=== PATIENT | male | born 1935 | race Caucasian/White ===

== ENCOUNTER 2016-03-01 12:23 | Emergency (ER) | payer MEDICARE ==
[2016-03-01] MEDS ORDERED: SODIUM BICARBONATE 4.2% VIAL 5 ML IM ONE (12:24)
--- NOTE | 2016-03-01 15:16 | CT ---
Exam: CT head without contrast COMPARISON: 07/26/2014 INDICATION: Ground-level fall, hitting posterior head. TECHNIQUE: CT examination of the head was obtained without contrast. FINDINGS: There is no acute intracranial hemorrhage. There is no abnormal intra or extra-axial fluid collection. There is no edema, mass effect or midline shift. Mild ventriculomegaly is unchanged. There is minor global atrophy. Minor deep white matter hypodensities are seen, compatible with chronic small vessel ischemic changes. Intracranial vascular calcifications are noted. There is no depressed skull fracture. The visualized paranasal sinuses and mastoid air cells are well aerated. IMPRESSION: No acute intracranial abnormality. Stable exam since 07/26/2014 without significant interval change. Report was uploaded to the EMR at 1512 hours 03/01/2016.
--- NOTE | 2016-03-01 16:05 | RAD ---
Exam: Two-view chest COMPARISON: 10/18/2014, 07/26/2014, 02/21/2013 INDICATION: Cough. Recent fall out of bed. Afebrile. Findings: AP and lateral views of the chest were obtained. Cardiac silhouette is within normal limits. Lungs are well-inflated. There are bilateral pleural effusions, right much greater than left. Right pleural effusion was seen on the 2015 chest radiograph but is increased may be partially loculated. Left-sided pleural effusion is small and new. Bones of the chest wall within normal limits. No displaced rib fracture is identified. IMPRESSION: Bilateral pleural effusions, right much greater than left. Right pleural effusion has increased since 2015 and may be partially loculated, and a small left-sided pleural effusion is new. These are of uncertain etiology and significance. Findings were discussed with Dr. Juares at 1600 hours 03/01/2016.
[2016-03-01 16:51] LABS: ABSOLUTE NEUTROPHIL COUNT 4.5 K/mm3 (1.8-7.7); BASO # 0.1 K/mm3 (0.0-0.2); BASO % 0.7 % (0.2-1.0); EOS # 1.3 (0.0-0.5); EOS % 19.1 % (0.9-2.9); HEMATOCRIT 35.5 % (32.0-52.0); HEMOGLOBIN 10.9 gm/l (14.0-18.0); IMM NEUT% 0.3 % (0-1); LYMPH # 0.5 (1.0-4.8); LYMPH % 7.2 % (15-45); MEAN CELL VOLUME 89.6 fl (80.0-94.0); MEAN CORPUSCULAR HEMOGLOBIN 27.5 pg (27.0-31.0); MEAN CORPUSCULAR HGB CONC 30.7 g/dl (33.0-37.0); MEAN PLATELET VOLUME 10.4 fl (7.4-10.4); MONO # 0.5 (0.0-0.8); MONO % 7.5 % (4-12); NEUT % 65.2 % (43-75); PLATELET COUNT 239 K/mm3 (130-400); RED CELL DISTRIBUTION WIDTH 17.3 % (11.5-14.5)
[2016-03-01 17:00] LABS: INR 1.07; PROTHROMBIN TIME 11.2 SECONDS (9.3-11.4)
--- NOTE | 2016-03-01 19:20 | US ---
Procedure: Ultrasound-guided thoracentesis COMPARISON: Chest radiograph 03/01/2016 INDICATION: Shortness of breath, loculated right-sided pleural effusion. TECHNIQUE: The procedure and benefits and risks of the procedure were discussed with the patient's daughter due to advanced dementia. All questions were answered. Informed consent was obtained and witnessed and documentation was placed in the patient's medical record. Preprocedure imaging demonstrated a moderate right-sided pleural effusion with a few thin internal septations. Appropriate entrance site was marked on the posterior chest wall. The right posterior chest wall was prepped and draped in usual sterile fashion. 1% lidocaine mixed with bicarbonate was administered to achieve a regional anesthesia. A 5 [place] catheter was placed in the pleural space and approximately 400 mL of thin serosanguineous fluid was withdrawn, portion of which was sent to laboratory for analysis. Procedure was technically challenging as patient had difficulty holding still. The patient did tolerate the procedure and there are no immediate complications. Post procedure imaging demonstrated a small right-sided pleural effusion remaining. IMPRESSION: Successful ultrasound-guided thoracentesis yielding 400 mL of thin serosanguineous fluid. Small pleural effusion remained at the end of the procedure.
[2016-03-01 19:46] LABS: BODY FLUID COLOR AMBER; BODY FLUID SOURCE PLEURAL FLUID
[2016-03-01 19:47] LABS: BODY FLUID APPEARANCE HAZY; BODY FLUID RBC 5 k/uL; BODY FLUID WBC 40 /uL
[2016-03-01 19:48] LABS: BODY FLUID MONONUCLEAR 60 %; BODY FLUID NEUTROPHIL 40 %
[2016-03-01 19:58] LABS: TOTAL PROTEIN,BODY FLUID 4.4 g/dl
== END 2016-03-01 19:32 | disposition home or self-care (01) ==
LOC: ED 12:23
DX: S09.90XA Unspecified injury of head, initial encounter (principal); J90 Pleural effusion, not elsewhere classified; R06.02 Shortness of breath; K74.69 Other cirrhosis of liver; B19.20 Unspecified viral hepatitis C without hepatic coma; Z79.82 Long term (current) use of aspirin; W06.XXXA Fall from bed, initial encounter; Y92.003 Bedroom of unspecified non-institutional (private) residence as the place of occurrence of the external cause
CPT/HCPCS: 89051; 85025; 83615; 85610; 84157; 71020; 70450; 32555; 87804; 99284 ×2; 36415; C1729

== ENCOUNTER 2016-03-08 06:09 | Observation (INO) | payer MEDICARE ==
[2016-03-08] MEDS ORDERED: BLISTEX LIPSTICK 1 EACH TP ONE (11:15)
[2016-03-08] MEDS ORDERED: ONDANSETRON 4 MG ODT TAB PO PRN (11:41)
[2016-03-08] MEDS ORDERED: POLYVINYL ALCOHOL 1.4% (TEARS) 300 GTTS/BOT SOLN.DROP OU PRN (11:41)
[2016-03-08] MEDS ORDERED: ACETAMINOPHEN 325 MG TABLET PO PRN (11:41)
[2016-03-08] MEDS ORDERED: ATROPINE SULFATE 1% 100 GTTS/BOT SOLN.DROP SL PRN (11:41)
[2016-03-08] MEDS ORDERED: KETOROLAC TROMETHAMINE 15 MG/ML VIAL IV PRN (11:41)
[2016-03-08] MEDS ORDERED: ACETAMINOPHEN 650 MG SUP PR PRN (11:41)
[2016-03-08] MEDS ORDERED: MORPHINE SULFATE 30 MG TABLET SL PRN (11:44)
[2016-03-08] MEDS ORDERED: SCOPOLAMINE 1.5 MG/72 HR 1 EACH PATCH TD SCH (11:45)
[2016-03-08] MEDS ORDERED: LORAZEPAM 2 MG/1 ML PO PRN (12:00)
[2016-03-08] MEDS ORDERED: MORPHINE SULF Oral Liquid 20 MG/1 ML DOSE SL PRN (12:01)
--- NOTE | 2016-03-08 14:37 | PDOC36 ---
Provider Note Subject: Note: informed by nursing that pt . Exam shows no breathing, neg heart sounds and pupils fixed and dilated. time of was 13:50
--- NOTE | 2016-03-08 15:09 | HP ---
DALLAS CASTELLON : 1935 [id number] DATE OF ADMISSION: March 08, 2016 PRIMARY CARE PROVIDER: Mark George M.D. CHIEF COMPLAINT: Shortness of breath. HISTORY OF PRESENT ILLNESS: Patient is an 80-year-old gentleman who has a significant history of coronary artery disease, congestive heart failure as well as end-stage liver disease with ascites who presented to the emergency department with increased work of breathing and respiratory distress. According to the family members, the patient is to be admitted on Hospice tomorrow. However, this morning he looked to be in significant distress and was uncomfortable and so they brought him in to the emergency department for comfort care measures to be established in the hospital. The patient is on a nonrebreather mask at this point and is breathing shallow but comfortably. Denies any pain or cough. He has limited mental status at this point which is apparently his baseline at home and reason for his being on Hospice. PAST MEDICAL HISTORY: Patient has: 1. History of coronary artery disease with acute coronary syndrome and stenting in 2010. 2. Thrombocytopenia. 3. Iron deficiency anemia in the past. 4. Dyslipidemia. 5. Atrial fibrillation. 6. Diastolic heart failure. 7. Bilateral pleural effusions, severe. 8. End stage liver disease with ascites. PAST SURGICAL HISTORY: Positive for: 1. Colonoscopy in 2013 that was showing hemorrhoids and diverticula. 2. Left anterior descending stent in 2010. 3. Back surgery in the past. 4. Benign cysts and tumors in the neck that have been removed. IMMUNIZATIONS: Patient previously refused Pneumovax. ALLERGIES: NO KNOWN DRUG ALLERGIES. MEDICATIONS: Patient does have home medications, but he has not been taking them for the past many days because of his transitioning to Hospice status. He is currently not on any medications. SOCIAL HISTORY: Patient was for approximately 58 years. He has no history of smoking. He is not drinking any alcohol at this time, however, he has in the past been a significant drinker. FAMILY HISTORY: Patient's father at age 79 but not sure of the cause. Mother at age 79 but not sure of the cause though she did have high blood pressure. He has two children in good health. REVIEW OF SYSTEMS: Unable to get a review of systems from the patient secondary to his mental status and respiratory status. However, the family notes that he has been comfortable. He has not been complaining of any pain. He does not take very much orally. He had a couple of bites of food yesterday but at this time he is more or less nothing by mouth simply by virtue of his functional status. He has no diarrhea. Denies any abdominal pain per family. He did have some increased work of breathing and respiratory distress this morning which was resolved with the nonrebreather mask. PHYSICAL EXAM: GENERAL: Patient is lying in the bed. He appears to be in respiratory distress with shallow breaths that are rapid but otherwise does not appear uncomfortable. VITAL SIGNS: In the emergency department the patient's blood pressure was 97/71, respiratory rate 44, pulse is 178, O2 saturation is 86% on nonrebreather. Temperature was not obtained. HEENT: Head is normocephalic, atraumatic. Mucous membranes are somewhat dry and tacky. He has a nonrebreather mask on. His eyes are closed. He does not open them to voice or stimulation. RESPIRATORY: Decreased breath sounds bilaterally worse on the right. He has shallow breaths which are rapid. CARDIOVASCULAR: Irregularly irregular rate and rhythm which is tachycardic significantly. No murmurs are heard. ABDOMEN: Soft, nontender, nondistended. EXTREMITIES: No cyanosis or clubbing. He has trace edema bilateral lower extremities to the ankle. NEUROLOGIC: Patient is asleep. He does not rouse to name called or to nonpainful stimulus. Given his comfort care status, I did not stimulate him with pain. ASSESSMENT AND PLAN: 1. Hypoxia with respiratory distress. This is probably multifactorial but with cardiac as well as his pleural effusions, he was to be on Hospice but was unable to get Hospice set up with oxygen at home prior to tomorrow and thus I am going to be referring him to observation and keeping on comfort care while he is here. Given his current status, I doubt that the patient will be very long-lived while he is here, but we may consider transitioning him to home Hospice if he does okay overnight and assuming that they can get him established at home. I am going to keep him comfortable with his respiratory status as far as giving him the nonrebreather mask as well as morphine drops under the tongue for any air hunger. We will give him scopolamine and atropine for his secretions. Per the family's request, we are going to try and avoid using an IV if at all possible. We will manage him with further care as dictated by his course. 2. Code status is DO NOT RESUSCITATE/DO NOT INTUBATE. 3. Deep venous thrombosis prophylaxis. Patient is comfort care only and thus deep venous thrombosis prophylaxis is not warranted. Cc: Mark George M.D.
--- NOTE | 2016-03-08 15:16 | DEATH SUM ---
DALLAS CASTELLON : 1935 [id number] DATE OF ADMISSION: March 08, 2016 DATE OF : March 08, 2016 ADMIT DIAGNOSES: 1. Respiratory distress and hypoxia. 2. Congestive heart failure, acute exacerbation. 3. Bilateral pleural effusions. 4. End-stage liver disease. 5. Coronary artery disease. HISTORY AND PHYSICAL: Please see History and Physical dictated. In short, this is an 80-year-old gentleman who was admitted under comfort care secondary to respiratory distress and hypoxia. He was unable to get admitted into Hospice prior to his acute event. HOSPITAL COURSE: The patient was referred to observation on the general medical floor on comfort care. He was initially intended to be admitted to Hospice tomorrow but developed respiratory distress today. He was comfortable with shallow breaths and no pain on a nonrebreather mask. Only several hours after he was admitted, he passed peacefully with family present. Exam at time of showed no breath sounds, no heart sounds, and pupils that are fixed and dilated. Body was released to the family. Time of was pronounced at 13:50. Cc: Mark George M.D.
== END 2016-03-08 18:10 | disposition expired ==
LOC: ED 06:09 → INTOOBSV 10:24 → MS 10:24
PROVIDERS: ADMIT Family Medicine; ATTEND Family Medicine
DX: R06.02 Shortness of breath (principal); I25.10 Atherosclerotic heart disease of native coronary artery without angina pectoris; I50.30 Unspecified diastolic (congestive) heart failure; D69.6 Thrombocytopenia, unspecified; I48.91 Unspecified atrial fibrillation; N18.6 End stage renal disease; Z66 Do not resuscitate
CPT/HCPCS: 99284 ×2; A9270 ×2; G0378 ×2